=== PATIENT | male | born 2000 | race Caucasian/White ===

== ENCOUNTER 2019-09-07 16:18 | Emergency (ER) | payer MEDICAID, OTHER ==
[~2019-09-07] VITALS: Ht 180.3 cm; Wt 87.0 kg
[2019-09-07 16:26] VITALS: BP 119/67
[2019-09-07] MEDS ORDERED: BACITRACIN ZINC OINT UDPKT TOP ONE (18:15)
[2019-09-07] MEDS ORDERED: LIDOCAINE 1%/EPI 1:100,000 10 ML VIAL IJ ONE (18:15)
[2019-09-07] MEDS ORDERED: TRANEXAMIC ACID 1,000 MG/10 ML TP ONE (18:15)
[2019-09-07] MEDS ORDERED: LIDOCAINE HCL/EPINEPHRINE 1%-EPI 1:100,000 20 ML VIAL INFIL NR (18:15)
[2019-09-07] MEDS ORDERED: TETANUS, DIPHTHERIA, PERTUSSIS VAC/PF 0.5ML (>7YR OLD) IM ONE (18:15)
[2019-09-07] MEDS ORDERED: IBUPROFEN 600MG TABLET PO ONE (18:45)
== END 2019-09-07 21:03 | disposition home or self-care (01) ==
LOC: ER 16:18
DX: S02.2XXA Fracture of nasal bones, initial encounter for closed fracture (principal); S61.411A Laceration without foreign body of right hand, initial encounter; Y04.0XXA Assault by unarmed brawl or fight, initial encounter; W22.8XXA Striking against or struck by other objects, initial encounter; Y93.89 Activity, other specified; Y92.018 Other place in single-family (private) house as the place of occurrence of the external cause
CPT/HCPCS: 70486; 73130; 90471; 90715; 99284; J3490